=== PATIENT | male | born 1990 | race African-American/Black ===

== ENCOUNTER 2018-11-29 20:44 | Emergency (ER) | payer OTHER ==
[~2018-11-29] VITALS: Ht 185.4 cm; Wt 65.8 kg
[2018-11-29] MEDS ORDERED: VENTOLIN HFA 1818 GM INH (20:50)
[2018-11-29 22:33] VITALS: BP 128/71
== END 2018-11-29 22:34 | disposition home or self-care (01) ==
LOC: ER 20:44
DX: S60.311A Abrasion of right thumb, initial encounter (principal); J45.909 Unspecified asthma, uncomplicated; W55.59XA Other contact with raccoon, initial encounter; Y93.89 Activity, other specified; Y92.098 Other place in other non-institutional residence as the place of occurrence of the external cause; Y99.8 Other external cause status

== ENCOUNTER 2018-12-02 15:49 | Emergency (ER) | payer OTHER ==
[~2018-12-02] VITALS: Ht 185.4 cm; Wt 65.8 kg
[~2018-12-02 15:49] MED LIST: VENTOLIN HFA 1818 GM INH
[2018-12-02 15:50] VITALS: BP 131/71
== END 2018-12-02 16:19 | disposition home or self-care (01) ==
LOC: ER 15:49
DX: Z23 Encounter for immunization (principal); Z48.01 Encounter for change or removal of surgical wound dressing; J45.909 Unspecified asthma, uncomplicated

== ENCOUNTER 2018-12-06 14:40 | Emergency (ER) | payer OTHER ==
[~2018-12-06] VITALS: Ht 185.4 cm; Wt 68.0 kg
[2018-12-06 15:23] VITALS: BP 112/79
== END 2018-12-06 15:23 | disposition home or self-care (01) ==
LOC: ER 14:40
DX: Z20.3 Contact with and (suspected) exposure to rabies (principal); J45.909 Unspecified asthma, uncomplicated

== ENCOUNTER 2018-12-13 14:51 | Emergency (ER) | payer OTHER ==
[~2018-12-13] VITALS: Ht 185.4 cm; Wt 65.8 kg
[2018-12-13 14:51] VITALS: BP 117/73
== END 2018-12-13 15:21 | disposition home or self-care (01) ==
LOC: ER 14:51
DX: Z23 Encounter for immunization (principal); J45.909 Unspecified asthma, uncomplicated

== ENCOUNTER 2019-03-06 11:16 | Emergency (ER) | payer OTHER ==
[~2019-03-06] VITALS: Ht 185.4 cm; Wt 65.8 kg
[2019-03-06] MEDS ORDERED: NORFLEX100 MG PO (12:22)
[2019-03-06] MEDS ORDERED: NAPROSYN500 MG PO (12:22)
[2019-03-06 12:40] VITALS: BP 122/68
== END 2019-03-06 12:40 | disposition home or self-care (01) ==
LOC: ER 11:16
DX: S39.012A Strain of muscle, fascia and tendon of lower back, initial encounter (principal); S29.012A Strain of muscle and tendon of back wall of thorax, initial encounter; M25.562 Pain in left knee; J45.909 Unspecified asthma, uncomplicated; X50.1XXA Overexertion from prolonged static or awkward postures, initial encounter; Y92.89 Other specified places as the place of occurrence of the external cause; Y93.89 Activity, other specified; Y99.8 Other external cause status